=== PATIENT | male | born 1990 | race African-American/Black ===

== ENCOUNTER 2017-12-30 00:50 | Emergency (ER) | payer OTHER ==
[2017-12-30] MEDS: ONDANSETRON (ODT) 4 MG TAB ODT (01:14)
[2017-12-30] MEDS: IPRATROPIUM (NEB) 0.5 MG/2.5 ML AMP INH (01:38)
[2017-12-30] MEDS: ALBUTEROL 0.5% (NEB) 2.5 MG/0.5 ML AMP INH (01:38)
== END 2017-12-30 02:30 | disposition home or self-care (01) ==
LOC: FTE 00:50
DX: J45.901 Unspecified asthma with (acute) exacerbation (principal)
CPT/HCPCS: 94644; 99283-25